=== PATIENT | male | born 1985 | race Caucasian/White ===

== ENCOUNTER 2016-06-16 16:25 | Emergency (ER) | payer OTHER ==
[~2016-06-16] VITALS: Ht 167.6 cm; Wt 105.0 kg
[2016-06-16 16:35] VITALS: Ht 167.6 cm; Wt 105.0 kg
[2016-06-16] MEDS ORDERED: ACET500C5 PO (17:09)
[2016-06-16] MEDS ORDERED: AMO500 PO (17:09)
[2016-06-16] MEDS ORDERED: ACETAMINOPHEN 500 MG TAB PO STA (17:10)
--- NOTE | 2016-06-16 17:23 | ERD ---
ER Documentation Chief Complaint Date/Time DATE: 06/16/16 TIME: 17:11 Chief Complaint RIGHT EAR PAIN STARTED YESTERDAY, POPPING SOUND FROM RT EAR HPI Patient is a 30-year-old male who presents to the emergency department with right ear pain that started yesterday. Patient states that the pain is pulsating in nature. He states his current pain level is a 7 out of 10. Patient states that he continues to hear a popping sound in his ear. Patient reports using wax remover eardrops over the last 2 days. Patient reports slight decrease in hearing secondary to constant popping noises in his ear. Patient also reports using Q-tips frequently.. Patient states that he tried taking Advil for his symptoms with minimal alleviation of pain. Patient also reports tactile fevers but denies any nausea, vomiting, throat pain, cough, rhinorrhea, generalized body aches. Patient denies any abdominal pain, chest pain, shortness of breath, diaphoresis. No recent travel. No sick contacts. ROS All systems reviewed and are negative except as per history of present illness. Medications Home Meds Active Scripts Amoxicillin* (Amoxicillin*) 500 Mg Cap, 500 MG PO TID for 7 Days, CAP Prov:ELVIRA VAUGHN PA-C 06/16/16 Acetaminophen* (Tylophen*) 500 Mg Capsule, 2 CAP PO Q8H Y for PAIN AND OR ELEVATED TEMP, #20 CAP Prov:ELVIRA VAUGHN PA-C 06/16/16 Allergies Allergies: Coded Allergies: No Known Allergy (Unverified , 06/16/16) PMhx/Soc Medical and Surgical Hx: pt denies Medical Hx, pt denies Surgical Hx History of Surgery: No Anesthesia Reaction: No Hx Neurological Disorder: No Hx Respiratory Disorders: No Hx Cardiac Disorders: No Hx Psychiatric Problems: No Hx Miscellaneous Medical Probl: No Hx Alcohol Use: No Hx Substance Use: No Hx Tobacco Use: No Physical Exam Vitals Vital Signs Date Time Temp Pulse Resp B/P Pulse Ox O2 Delivery O2 Flow Rate FiO2 06/16/16 16:35 100.8 107 17 137/79 95 Physical Exam GENERAL: Well-developed, well-nourished male. Appears in no acute distress. HEAD: Normocephalic, atraumatic. No deformities or ecchymosis. EYE: Pupils equal, round, and reactive to light. EOMs intact. No conjunctival erythema. No scleral icterus. No eye discharge. ENT: External ear without any masses or tenderness. White wax-like drainage noted in auditory canal of R ear. Right TM appears erythematous and bulging. Left TM appears normal, nonerythematous, nonbulging. Nasal mucosa pink with no discharge. Oropharynx is pink without any tonsillar erythema or exudates. No uvula deviation. No kissing tonsils. No mastoid tenderness bilaterally. Bilateral auditory acuity intact. Patient able to sense sounds of rubbing fingers together bilaterally. NECK: Supple. No lymphadenopathy or thyromegaly. No meningismus. No neck stiffness noted. LUNG: Clear to auscultation bilaterally. No rhonchi, wheezing, rales or coarse breath sounds. HEART: Regular rate and rhythm. No murmurs, rubs or gallops. ABDOMEN: Soft, nontender, and nondistended. Positive bowel sounds in all four quadrants. No rebound tenderness, no guarding. (-) McBurney's point tenderness. No CVA tenderness. BACK: No midline tenderness. EXTREMITIES: Equal pulses bilaterally. No peripheral clubbing, cyanosis or edema. No unilateral leg swelling. NEUROLOGIC: Alert and oriented to person, place and time. Moving all four extremities. 5/5 strength in all extremities. Normal speech. Steady gait. (-) Brudzinski sign. (-) Kernig's sign.. SKIN: Normal color. Warm and dry. No rashes or lesions. Results 24 hrs Current Medications Medications (Trade) Dose Ordered Sig/Sangita Route PRN Reason Start Time Stop Time Status Last Admin Dose Admin Acetaminophen (Tylenol Tab) 1,000 mg ONCE STAT PO 06/16/16 17:10 06/16/16 17:11 DC 06/16/16 18:07 Carbamide Peroxide (Debrox Otic) 1 drop ONCE ONCE RIGHT EAR 06/16/16 18:00 06/16/16 18:01 DC 06/16/16 18:07 Procedures/[facility] MEDICAL DECISION MAKING: This is a 30-year-old male who presents with right ear pain which started yesterday. Patient states that he frequently uses Q-tips. He stated that he tried using some OTC ear wax removal drops with no alleviation of symptoms. Vital signs were reviewed. Patient was noted to be febrile with a temperature of 100.8 on initial presentation, patient was given Tylenol here in the emergency department, which did down trend his temperature. Patient was not hypoxic. Right tympanic membrane appeared erythematous and bulging. Auditory acuity was intact. Given these findings, the patients presentation is most consistent with acute otitis media. I have a much lower clinical suspicion for otitis externa, tympanic membrane perforation, mastoiditis, otic barotrauma, TMJ dysfunction, sinusitis, strep pharyngitis, pneumonia, sepsis, meningitis. The popping sounds the patient reports and drainage noted in auditory canal is most likely be due to recent use of [id number] earwax removal drops. PRESCRIPTIONS: Amoxicillin. Patient advised to complete full course of antibiotics. Tylenol DISCHARGE: At this time, patient is stable for discharge and outpatient management. I have instructed the patient to follow-up with his/her primary care physician in 1-2 days. I have discussed with the patient the possibility of needing to see a specialist for further workup and diagnostic studies if the pain persists. I have instructed the patient to promptly return to the ER at any time for any new or worsening symptoms including increased pain, fever, swelling, discharge or hearing loss. The patient and/or family expressed understanding of and agreement with this plan. All questions were answered. Home care instructions were provided. Departure Diagnosis: Primary Impression: Otitis media Otitis media type: unspecified Laterality: right Chronicity: unspecified Qualified Code: H66.91 - Right otitis media, unspecified chronicity, unspecified otitis media type Additional Impression: Fever Fever type: unspecified Qualified Code: R50.9 - Fever, unspecified fever cause Condition: Stable Patient Instructions: Otitis Media, Abx Tx (Adult) Additional Instructions: Call your primary care doctor TOMORROW for an appointment during the next 1-2 days.See the doctor sooner or return here if your condition worsens before your appointment time. Avoid use of Q-tips. Take tylenol for any fevers or pain. Complete full course of antibiotics. ELVIRA VAUGHN PA-C Jun 16, 2016 17:23
[2016-06-16] MEDS ORDERED: CARBAMIDE PEROXIDE 6.5% 15ML OTIC RIGHT EAR ONE (18:00)
[2016-06-17] MEDS ORDERED: OSLT75C PO (19:09)
[2016-06-17] MEDS ORDERED: CIPR7.5D4 RIGHT EAR (19:09)
[2016-06-17] MEDS ORDERED: IBUP800T25 PO (19:10)
[2016-06-17] MEDS ORDERED: HYDR-902 PO (19:10)
[2016-06-17] MEDS ORDERED: UDROBDM PO (19:10)
== END 2016-06-16 18:10 | disposition home or self-care (01) ==
LOC: FTE 16:25
DX: H66.91 Otitis media, unspecified, right ear (principal); R50.9 Fever, unspecified
CPT/HCPCS: Z7502; Z7610; 99283

== ENCOUNTER 2016-06-17 17:34 | Emergency (ER) | payer OTHER ==
[~2016-06-17] VITALS: Ht 167.6 cm; Wt 104.0 kg
[~2016-06-17 17:34] MED LIST: ACET500C5 PO; AMO500 PO
[2016-06-17 17:38] VITALS: Ht 167.6 cm; Wt 104.0 kg
[2016-06-17] MEDS ORDERED: IBUPROFEN 800 MG TAB PO ONE (19:00)
[2016-06-17] MEDS ORDERED: OSLT75C PO (19:09)
[2016-06-17] MEDS ORDERED: CIPR7.5D4 RIGHT EAR (19:09)
[2016-06-17] MEDS ORDERED: IBUP800T25 PO (19:10)
[2016-06-17] MEDS ORDERED: HYDR-902 PO (19:10)
[2016-06-17] MEDS ORDERED: UDROBDM PO (19:10)
--- NOTE | 2016-06-17 19:19 | ERD ---
ER Documentation Chief Complaint Date/Time DATE: 06/17/16 TIME: 19:14 Chief Complaint RT EAR PAIN , FEVER X 2 DAYS HPI This is a 30-year-old male who presents to the emergency department today complaining of right ear pain and fever for the past 2 days. Patient states he also has pain behind his eyes, body aches and a cough the past day. States he was seen here yesterday and was given medication for his ear pain. Denies any nausea vomiting or diarrhea. ROS All systems reviewed and are negative except as per history of present illness. Medications Home Meds Active Scripts Guaifenesin-Dextromethorphan* (Robitussin* DM) 100MG/10MG/5ML Syrup, 10 ML PO Q4H Y for COUGH for 7 Days, ML Prov:REGIS LEWIS PA-C 06/17/16 Ibuprofen* (Motrin*) 800 Mg Tab, 800 MG PO Q6, #30 TAB Prov:REGIS LEWIS PA-C 06/17/16 Hydrocodone/Acetaminophen ([place]ife 10-325 Tablet) 1 Each Tablet, 1 TAB PO Q6H Y for PAIN, #15 TAB Prov:REGIS LEWIS PA-C 06/17/16 Oseltamivir Phosphate* (Tamiflu*) 75 Mg Capsule, 75 MG PO BID for 5 Days, CAP Prov:REGIS LEWIS PA-C 06/17/16 Ciprofloxacin Hcl/Dexameth (Ciprodex Otic Suspension) 7.5 Ml Drops.susp, 4 DROP RIGHT EAR BID for 7 Days, EA Prov:REGIS LEWIS PA-C 06/17/16 Amoxicillin* (Amoxicillin*) 500 Mg Cap, 500 MG PO TID for 7 Days, CAP Prov:ELVIRA VAUGHN PA-C 06/16/16 Acetaminophen* (Tylophen*) 500 Mg Capsule, 2 CAP PO Q8H Y for PAIN AND OR ELEVATED TEMP, #20 CAP Prov:ELVIRA VAUGHN PA-C 06/16/16 Allergies Allergies: Coded Allergies: No Known Allergy (Unverified , 06/16/16) PMhx/Soc History of Surgery: No Anesthesia Reaction: No Hx Neurological Disorder: No Hx Respiratory Disorders: No Hx Cardiac Disorders: No Hx Psychiatric Problems: No Hx Miscellaneous Medical Probl: No Hx Alcohol Use: No Hx Substance Use: No Hx Tobacco Use: No Physical Exam Vitals Vital Signs Date Time Temp Pulse Resp B/P Pulse Ox O2 Delivery O2 Flow Rate FiO2 06/17/16 17:38 100.3 114 18 129/60 97 Physical Exam Const: No acute distress Head: Atraumatic Eyes: Normal Conjunctiva ENT: Right ear with purulent drainage and erythema. Tragus and are occult tenderness. Nontender mastoid. Nose no drainage. Throat no erythema no exudate. Neck: Full range of motion..~ No meningismus. Resp: Clear to auscultation bilaterally Cardio: Regular rate and rhythm, no murmurs Abd: Soft, non tender, non distended. Normal bowel sounds Skin: No petechiae or rashes Neur: Awake and alert Psych: Normal Mood and Affect Results 24 hrs Current Medications Medications (Trade) Dose Ordered Sig/Sangita Route PRN Reason Start Time Stop Time Status Last Admin Dose Admin Ibuprofen (Motrin) 800 mg ONCE ONCE PO 06/17/16 19:00 06/17/16 19:01 DC 06/17/16 19:01 Procedures/MDM This 30-year-old male who presents to emergency department today with multiple complaints. He was seen here in emergency department yesterday for right ear pain and fever. Patient was given a prescription for amoxicillin and Tylenol. On physical exam today patient does have some evidence of purulent drainage and therefore symptoms today appear consistent with otitis externa as well. Patient has no mastoid tenderness and low suspicion for mastoiditis. Patient also stated that after leaving here yesterday he started to develop intermittent cough, body aches, pain behind his eyes. Patient's symptoms consistent with influenza-like symptoms. Patient's oxygen saturation is 97% his respirations are 18. Patient does have a low-grade temperature and he is tachycardic however I do not feel the patient requires laboratory mechanic helper imaging at this time. I have low suspicion for strep pharyngitis, peritonsillar abscess, retropharyngeal abscess, PNA, sinusitis, abscess, meningitis, sepsis, or other acute infectious bacterial process. Patient was given Motrin here in the emergency department He was given a prescription for Ciprodex, Fife and Motrin for pain and body aches as well as Tamiflu for flulike symptoms and Robitussin for cough. Patient was instructed continue taking the amoxicillin as prescribed. At this time the patient is stable for discharge and outpatient management. They should follow up with their PCP in the next 1-2. They may return to the emergency department sooner if symptoms persist or worsen. Patient understood and agreed with the plan. Departure Diagnosis: Primary Impression: Right ear pain Additional Impression: Influenza-like symptoms Condition: Fair Patient Instructions: Otitis Externa (Child), Influenza (Adult) Additional Instructions: Llame al doctor MAANA y jonathan dominga IRAIS PARA DENTRO DE 1-2 CEDILLO.Dgale a la secretaria que nosotros le instruimos hacer esta irais.Avise o llame si stevens condicin se empeora antes de la irais. Regresa aqui si peor o no mejor. Take amoxicillin that you have as prescribed Use Ciprodex drops were prescribed today Tamiflu for flulike symptoms Robitussin for cough Fife for severe pain otherwise take Tylenol or Motrin for pain or fever REGIS LEWIS PA-C Jun 17, 2016 19:19
[2016-06-17 19:24] VITALS: BP 140/92; PULSE 107; RESP 16; TEMP 101.2
== END 2016-06-17 19:25 | disposition home or self-care (01) ==
LOC: FTE 17:34
DX: H92.01 Otalgia, right ear (principal); R50.9 Fever, unspecified; R05 Cough
CPT/HCPCS: Z7502; Z7610; 99284

== ENCOUNTER 2017-01-11 18:07 | Emergency (ER) | payer OTHER ==
[~2017-01-11] VITALS: Ht 167.6 cm; Wt 109.5 kg
[~2017-01-11 18:07] MED LIST changes: +CIPR7.5D4 RIGHT EAR; +HYDR-902 PO; +IBUP800T25 PO; +OSLT75C PO; +UDROBDM PO
[2017-01-11 18:18] VITALS: Ht 167.6 cm; Wt 109.5 kg
[2017-01-11] MEDS ORDERED: KETOROLAC 30 MG INJ IM STA (20:44)
[2017-01-11] MEDS ORDERED: ACETAMINOPHEN 500 MG TAB PO STA (20:46)
[2017-01-11] MEDS ORDERED: IBUP-1542 PO (21:52)
[2017-01-11] MEDS ORDERED: AMO500 PO (21:53)
[2017-01-11 22:05] VITALS: BP 143/80; PULSE 100; RESP 17; TEMP 99.7
--- NOTE | 2017-01-11 23:34 | ERD ---
ER Documentation Chief Complaint Date/Time DATE: 01/11/17 TIME: 23:29 Chief Complaint Complains of left ear pain x 3 days HPI Patient is a 31-year-old male who presents to the emergency department for concerns of left ear pain 3 days. Patient denies any fevers at home however he states he was told he did have a low-grade temperature upon his arrival. Patient denies taking any medication for symptoms. Patient denies any throat pain, drooling, trismus or hyperextension of his neck. Patient denies any rhinorrhea, cough, chest pain, shortness breath, nausea, vomiting, abdominal pain or diarrhea. No sick contacts. No recent travel. Patient does report using Q-tips. Patient denies any recent water activity. ROS All systems reviewed and are negative except as per history of present illness. Medications Home Meds Active Scripts Amoxicillin* (Amoxicillin*) 500 Mg Cap, 500 MG PO TID for 10 Days, CAP Prov:ELVIRA VAUGHN PA-C 01/11/17 Ibuprofen* (Motrin*) 600 Mg Tab, 600 MG PO Q6, #30 TAB Prov:ELVIRA VAUGHN PA-C 01/11/17 Guaifenesin-Dextromethorphan* (Robitussin* DM) 100MG/10MG/5ML Syrup, 10 ML PO Q4H Y for COUGH for 7 Days, ML Prov:REGIS LEWIS PA-C 06/17/16 Ibuprofen* (Motrin*) 800 Mg Tab, 800 MG PO Q6, #30 TAB Prov:REGIS LEWIS PA-C 06/17/16 Hydrocodone/Acetaminophen ([place] 10-325 Tablet) 1 Each Tablet, 1 TAB PO Q6H Y for PAIN, #15 TAB Prov:REGIS LEWIS PA-C 06/17/16 Oseltamivir Phosphate* (Tamiflu*) 75 Mg Capsule, 75 MG PO BID for 5 Days, CAP Prov:REGIS LEWIS PA-C 06/17/16 Ciprofloxacin Hcl/Dexameth (Ciprodex Otic Suspension) 7.5 Ml Drops.susp, 4 DROP RIGHT EAR BID for 7 Days, EA Prov:REGIS LEWIS PA-C 06/17/16 Amoxicillin* (Amoxicillin*) 500 Mg Cap, 500 MG PO TID for 7 Days, CAP Prov:TYRONE VAUGHNNESTOR BATES 06/16/16 Acetaminophen* (Tylophen*) 500 Mg Capsule, 2 CAP PO Q8H Y for PAIN AND OR ELEVATED TEMP, #20 CAP Prov:ELVIRA VAUGHN PAULO 06/16/16 Allergies Allergies: Coded Allergies: No Known Allergy (Unverified , 06/16/16) PMhx/Soc History of Surgery: No Anesthesia Reaction: No Hx Neurological Disorder: No Hx Respiratory Disorders: No Hx Cardiac Disorders: No Hx Psychiatric Problems: No Hx Miscellaneous Medical Probl: No Hx Alcohol Use: No Hx Substance Use: No Hx Tobacco Use: No Smoking Status: Never smoker Physical Exam Vitals Vital Signs Date Time Temp Pulse Resp B/P Pulse Ox O2 Delivery O2 Flow Rate FiO2 01/11/17 22:05 99.7 100 17 143/80 98 Room Air 01/11/17 18:18 100.6 117 20 145/91 96 Physical Exam GENERAL: Well-developed, well-nourished male. Appears in no acute distress. HEAD: Normocephalic, atraumatic. No deformities or ecchymosis. EYE: Pupils equal, round, and reactive to light. EOMs intact. No conjunctival erythema. No eye discharge. ENT: External ear without any masses or tenderness. Left auditory canal appears erythematous and swollen. Tympanic membrane appears erythematous and bulging. Right TM appears non-erythematous, nonbulging.. Nasal mucosa pink with no discharge. Oropharynx is pink without any tonsillar erythema or exudates. No uvula deviation. No kissing tonsils. Nontender to palpation of bilateral mastoid processes. NECK: Supple. No meningismus. Normal ROM of the neck. LUNGS: Clear to auscultation bilaterally. No rhonchi, wheezing, rales or coarse breath sounds. HEART: Regular rate and rhythm. No murmurs, rubs or gallops. BACK: No midline tenderness. EXTREMITIES: Equal pulses bilaterally. No peripheral clubbing, cyanosis or edema. No unilateral leg swelling. NEUROLOGIC: Alert and oriented to person, place and time. Moving all four extremities. 5/5 strength in all extremities. Normal speech. Steady gait SKIN: Normal color. Warm and dry. No rashes or lesions. Results 24 hrs Current Medications Medications (Trade) Dose Ordered Sig/Sangita Route PRN Reason Start Time Stop Time Status Last Admin Dose Admin Ketorolac Tromethamine (Toradol) 30 mg ONCE STAT IM 01/11/17 20:44 01/11/17 20:46 DC 01/11/17 21:16 Acetaminophen (Tylenol Tab) 1,000 mg ONCE STAT PO 01/11/17 20:46 01/11/17 20:48 DC 01/11/17 21:16 Procedures/MDM ED COURSE: The patient was stable throughout ED course. I kept the patient and/or family informed of laboratory and diagnostic imaging results throughout the ED course. MEDICATIONS GIVEN: Toradol, Tylenol p.o. Patient tolerated medication well with no adverse reactions. Patient reported improvement in pain. MEDICAL DECISION MAKING: This is a 31-year-old male who presents the emergency department with left ear pain 3 days. Vital signs were reviewed. Patient was noted to have a temperature of 100.6 Fahrenheit at initial presentation. Patient's pulse was noted to be 117 bpm. Patient was not hypoxic. Ear exam did reveal left auditory canal swelling and erythema as well as bulging and erythema of the tympanic membrane. Patient was given Tylenol as well as Toradol here in the emergency department. Patient did have improvement in his temperature prior to discharge. I have a much lower clinical suspicion for otitis externa, acute otitis media, tympanic membrane perforation, mastoiditis, otic barotrauma, TMJ dysfunction, cerumen impaction, meningitis, strep pharyngitis, pneumonia. I doubt sepsis at this time. Patient's pulse as well as temperature was noted to be improved prior to discharge. Patient was nontoxic, [id number] prior to discharge. PRESCRIPTIONS: Ibuprofen, amoxicillin. DISCHARGE: At this time, patient is stable for discharge and outpatient management. I have instructed the patient to follow-up with his/her primary care physician in 1-2 days. I have discussed with the patient the possibility of needing to see a specialist for further workup and diagnostic studies if the pain persists. I have instructed the patient to promptly return to the ER at any time for any new or worsening symptoms including increased pain, fever, swelling, discharge or hearing loss. The patient and/or family expressed understanding of and agreement with this plan. All questions were answered. Home care instructions were provided. Patients blood pressure was elevated (>120/80) but appears stable without evidence of hypertensive emergency, hypertensive urgency or end-organ failure. I had discussion with the patient about the risks of hypertension. I have advised the patient to follow up with his/her primary care physician for outpatient monitoring and treatment for hypertension in 2-3 days. I have instructed the patient to return to the ER for any new or worsening symptoms including chest pain, shortness of breath, headache, blurred vision, confusion, nausea, vomiting or LOC. Disclaimer: Inadvertent spelling and grammatical errors are likely due to EHR/ dictation software use and do not reflect on the overall quality of patient care. Also, please note that the electronic time recorded on this note does not necessarily reflect the actual time of the patient encounter. Departure Diagnosis: Primary Impression: Otitis media Otitis media type: unspecified Laterality: left Chronicity: unspecified Qualified Code: H66.92 - Left otitis media, unspecified chronicity, unspecified otitis media type Condition: Stable Patient Instructions: Otitis Media, Abx Tx (Adult) Additional Instructions: Call your primary care doctor TOMORROW for an appointment during the next 1-2 days.See the doctor sooner or return here if your condition worsens before your appointment time. ELVIRA VAUGHN PA-C Jan 11, 2017 23:34
== END 2017-01-11 22:07 | disposition home or self-care (01) ==
LOC: FTE 18:07
DX: H66.92 Otitis media, unspecified, left ear (principal)
CPT/HCPCS: 96372; J1885; Z7502; Z7610